=== PATIENT | male | born 1990 | race Caucasian/White ===

== ENCOUNTER 2016-09-15 11:45 | Emergency (ER) | payer SELFPAY ==
[2016-09-15 11:46] VITALS: BP 125/75; PULSE 80; RESP 14; TEMP 98; O2SAT 98
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
[2016-09-15] MEDS ORDERED: TETANUS/DIPHTHERIA TOXOID ADULT 0.5 ML VIAL IM ONE (13:15)
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
[2016-09-15] MEDS ORDERED: NAPR500T PO (14:21)
[2016-09-15 14:37] VITALS: BP 129/65
== END 2016-09-15 14:38 | disposition home or self-care (01) ==
LOC: NEPD 11:45
DX: S60.221A Contusion of right hand, initial encounter (principal); S00.83XA Contusion of other part of head, initial encounter; S09.92XA Unspecified injury of nose, initial encounter; Z23 Encounter for immunization; Y04.2XXA Assault by strike against or bumped into by another person, initial encounter
CPT/HCPCS: 73130; 90471; 90714

== ENCOUNTER 2016-09-16 10:12 | Emergency (ER) | payer SELFPAY ==
[~2016-09-16] VITALS: Ht 165.1 cm; Wt 68.0 kg
[~2016-09-16 10:12] MED LIST: NAPR500T PO
[2016-09-16 10:13] VITALS: BP 132/63; PULSE 63; RESP 16; TEMP 98; O2SAT 99
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
== END 2016-09-16 11:07 | disposition home or self-care (01) ==
LOC: NEPK 10:12
DX: S30.0XXA Contusion of lower back and pelvis, initial encounter (principal); R51 Headache; Y09 Assault by unspecified means
CPT/HCPCS: 99282

== ENCOUNTER 2017-06-29 10:05 | Emergency (ER) | payer SELFPAY ==
[~2017-06-29] VITALS: Ht 165.1 cm; Wt 62.0 kg
[~2017-06-29 10:05] MED LIST changes: -NAPR500T PO; +NAPR500T2 PO
[2017-06-29 10:08] VITALS: BP 127/65; PULSE 51; RESP 16; TEMP 98.1; O2SAT 100
[2017-06-29] MEDS ORDERED: BACI500O9 TOPICAL (12:07)
[2017-06-29] MEDS ORDERED: BACT800T5 PO (12:07)
--- NOTE | 2017-06-29 12:11 | PD ---
HPI Chief Complaint: Skin Problem Time Seen by Provider: 12:04 Travel History International Travel<30 days: No Contact w/Intl Traveler<30days: No Traveled to known affect area: No History of Present Illness HPI 26-year-old male that presents to the ED for evaluation of skin lesion to his left naris. Patient has had this since yesterday. Per patient is becoming more swollen. Per patient he was able to drink some fluid from it. Per patient is painful and he is concerned because is getting bigger. No history of this in the past. No other medical issues. No history of MRSA. No injury or trauma. Per patient pain is 6 out of 10. No mouth injury. PFSH Past Medical History Diminished Hearing: No Influenza Vaccination: No Social History Alcohol Use: No Tobacco Use: No Substance Use: No Allergies-Medications (Allergen,Severity, Reaction): Coded Allergies: No Known Allergies (Unverified Adverse Reaction, Unknown, 06/29/17) Reported Meds & Prescriptions Reported Meds & Active Scripts Active Bacitracin Topical 500 Unit/Gm Oint 1 Applic TOPICAL BID Bactrim DS (Sulfamethoxazole-Trimethoprim) 800-160 Mg Tab 1 Tab PO BID 10 Days Review of Systems Except as stated in HPI: all other systems reviewed are Neg Physical Exam Narrative GENERAL: SKIN: Warm and dry. HEAD: Atraumatic. Normocephalic. EYES: Pupils equal and round. No scleral icterus. No injection or drainage. ENT: No nasal bleeding or discharge. Mucous membranes pink and moist. There is a patent bilaterally. Patient has what appears to be a pustule about half a centimeter in diameter on the left outer nare. Tender to touch. Erythematous and warm to touch. NECK: Trachea midline. No JVD. CARDIOVASCULAR: Regular rate and rhythm. RESPIRATORY: No accessory muscle use. Clear to auscultation. Breath sounds equal bilaterally. GASTROINTESTINAL: Abdomen soft, non-tender, nondistended. Hepatic and splenic margins not palpable. MUSCULOSKELETAL: Extremities without clubbing, cyanosis, or edema. No obvious deformities. NEUROLOGICAL: Awake and alert. No obvious cranial nerve deficits. Motor grossly within normal limits. Five out of 5 muscle strength in the arms and legs. Normal speech. PSYCHIATRIC: Appropriate mood and affect; insight and judgment normal. Data Data Last Documented VS Vital Signs Date Time Temp Pulse Resp B/P (MAP) Pulse Ox O2 Delivery O2 Flow Rate FiO2 3/5/18 10:08 98.1 51 16 127/65 (85) 100 Orders Orders Ed Discharge Order (06/29/17 12:07) MDM Medical Decision Making Medical Screen Exam Complete: Yes Emergency Medical Condition: Yes Medical Record Reviewed: Yes Differential Diagnosis Herpetic lesion versus cellulitis versus pustule Narrative Course 26-year-old male that presents to the ED for evaluation of infected pustule. Patient was properly examined and was found to have signs and symptoms consistent appears to be pustule versus herpetic lesion. This time does appear to be infected. The recommend trial of antibiotics as well as cream. Patient agrees with this. Ice or warm compresses endorsed. Motrin FOR PAIN. FOLLOW WITH PCP. SEE ED WORSENING SYMPTOMS. Diagnosis Primary Impression: Nostril infection Patient Instructions: General Instructions Additional Instructions: Motrin for pain. Take medications as prescribed. Follow with PCP. See ED worsening symptoms. Warm compresses Med/Other Pt SpecificInfo: Prescription(s) given, Wound Care Scripts Bacitracin Topical (Bacitracin Topical) 500 Unit/Gm Oint 1 APPLIC TOPICAL BID for Infection, #30 GM 0 Refills Prov: Ino Rob MD 06/29/17 Sulfamethoxazole-Trimethoprim (Bactrim DS) 800-160 Mg Tab 1 TAB PO BID for Infection for 10 Days, #20 TAB 0 Refills Prov: Ino Rob MD 06/29/17 Disposition: 01 DISCHARGE HOME Condition: Stable Oumar Kearney Jun 29, 2017 12:11
== END 2017-06-29 12:21 | disposition home or self-care (01) ==
LOC: PHEFT 10:05
DX: L98.9 Disorder of the skin and subcutaneous tissue, unspecified (principal)
CPT/HCPCS: 99283